=== PATIENT | male | born 1990 | race African-American/Black ===

== ENCOUNTER 2022-08-25 10:07 | Emergency (ER) | payer OTHER ==
[~2022-08-25] VITALS: Ht 177.8 cm; Wt 77.1 kg
--- NOTE | 2022-08-25 10:15 | NUR ---
N/V AT THIS TIME RECEIVED PT 31 YRS MALE CAME FROM HOME C/O EPEGASTRIC PAIN FOR 3 DAYS DINESES
[2022-08-25] MEDS ORDERED: FAMOTIDINE/PF INJ 20 MG/2 ML VIAL IV ONE ×2 (10:30→10:45)
--- NOTE | 2022-08-25 10:30 | NUR ---
SEEN by DR. PAYTON
--- NOTE | 2022-08-25 10:35 | NUR ---
PT REFUSED IV LINE TO INSETED AND BLOOD DROW BY LAB AND UA SENT TO LAB
[2022-08-25 10:41] LABS: BASOPHILS % (AUTO) 1.1 % (0.0-2.0); HEMATOCRIT 41 % (39-51); HEMOGLOBIN 13.6 g/dL (13.5-17.5); LYMPHOCYTES # (AUTO) 1.4 K/uL (0.8-4.8); LYMPHOCYTES % (AUTO) 34.9 % (20.0-44.0); MEAN CORPUSCULAR HGB CONC 34 g/dl (31.0-36.0); MEAN CORPUSCULAR VOLUME 89 fL (80-96); MONOCYTES # (AUTO) 0.3 K/uL (0.1-1.30); MONOCYTES % (AUTO) 8.6 % (2.0-12.0); NEUTROPHILS % (AUTO) 50.4 % (43.0-81.0); PLATELET COUNT (AUTO) 196 K/uL (150-450); RED BLOOD CELL COUNT(AUTO) 4.53 MIL/uL (4.5-6.0)
--- NOTE | 2022-08-25 10:45 | NUR ---
OKY TO GIVE PEPCED PO INSTED THEN IV ORDRED BY DR. PAYTON
[2022-08-25 10:46] LABS: BILIRUBIN,URINE NEGATIVE (NEGATIVE); COLOR,URINE YELLOW (YELLOW); LEUKOCYTE ESTERASE ,URINE NEGATIVE (NEGATIVE); NITRITE, URINE NEGATIVE (NEGATIVE); PROTEIN,URINE NEGATIVE (NEGATIVE); UGLUCOSE NEGATIVE (NEGATIVE); UROBILINOGEN,URINE 0.2 EU/dL (0.2)
[2022-08-25] MEDS ORDERED: FAMOTIDINE (20 MG) 20 MG TABLET ONE (10:47)
[2022-08-25 11:24] LABS: CALCIUM, SERUM 8.8 mg/dL (8.5-10.1); CREATININE 0.9 mg/dL (0.6-1.3)
[2022-08-25 11:30] LABS: ALBUMIN 3.7 g/dL (3.4-5.0); BILIRUBIN,DIRECT 0.1 mg/dL (0.0-0.2); BILIRUBIN,TOTAL 0.3 mg/dL (0.2-1.0); TOTAL PROTEIN, SERUM 7.3 g/dL (6.4-8.2)
--- NOTE | 2022-08-25 11:35 | NUR ---
ABDOMINALE US DONE AT BED SIDE
[2022-08-25 11:36] LABS: BACTERIA,URINE None seen /HPF (None Seen); RBC,URINE 0-2 /HPF (0-2); SQUAMOUS EPITHELIAL CELL,UR Rare /HPF (None Seen); WBC,URINE 0-2 /HPF (0-3)
[2022-08-25] MEDS ORDERED: MAG HYDROX/AL HYDROX/SIMETH 30 ML UDC ONE (12:24)
[2022-08-25] MEDS ORDERED: LIDOCAINE VISCOUS 2% UD 15 ML UDC ONE (12:25)
[2022-08-25] MEDS ORDERED: LIDOCAINE VISCOUS 2% UD 15 ML UDC MM ONE (12:30)
[2022-08-25] MEDS ORDERED: MAG HYDROX/AL HYDROX/SIMETH 30 ML UDC PO ONE (12:30)
--- NOTE | 2022-08-25 12:50 | NUR ---
Maalox 30ml and xylocine 15 ml po given pt tolorated no n/v AND PAIN RESOVE
[2022-08-25] MEDS ORDERED: FAMO-131 PO (12:57)
--- NOTE | 2022-08-25 13:04 | NUR ---
Patient discharged to home in stable condition. Written and verbal after care instructions given. Patient verbalizes understanding of instruction.
[2022-08-25 13:06] VITALS: BP 111/77
== END 2022-08-25 13:07 | disposition home or self-care (01) ==
LOC: ER 10:14
DX: R10.13 Epigastric pain (principal)
CPT/HCPCS: 36415; 76705-TC; 80048-TC; 80076-TC; 81001; 83690-TC; 85025-TC; J3490

== ENCOUNTER 2023-06-02 20:57 | Emergency (ER) | payer OTHER ==
[~2023-06-02] VITALS: Ht 177.8 cm; Wt 77.1 kg
[~2023-06-02 20:57] MED LIST: FAMO-131 PO
[2023-06-02] MEDS ORDERED: IV NS 0.9% 1,000 ML BAG IV ONE (23:00)
[2023-06-02] MEDS ORDERED: METOCLOPRAMIDE HCL 10 MG/2 ML VIAL IV ONE (23:00)
[2023-06-02] MEDS ORDERED: KETOROLAC TROMETHAMINE INJ 30 MG/ML VIAL IV ONE (23:00)
[2023-06-02] MEDS ORDERED: diphenhydrAMINE HCL 50 MG/ML VIAL IV ONE (23:00)
[2023-06-02] MEDS ORDERED: diphenhydrAMINE HCL 50 MG/ML VIAL ONE (23:02)
[2023-06-02] MEDS ORDERED: KETOROLAC TROMETHAMINE 15 MG/ML VIAL ONE (23:02)
[2023-06-02] MEDS ORDERED: METOCLOPRAMIDE HCL 10 MG/2 ML VIAL ONE (23:02)
[2023-06-02 23:12] LABS: BASOPHILS % (AUTO) 0.4 % (0.0-2.0); EOSINOPHILS # (AUTO) 0.2 K/uL (0.0-0.7); EOSINOPHILS % (AUTO) 3.2 % (0.0-6.0); HEMATOCRIT 44 % (39-51); HEMOGLOBIN 14.5 g/dL (13.5-17.5); LYMPHOCYTES # (AUTO) 2.2 K/uL (0.8-4.8); LYMPHOCYTES % (AUTO) 42.3 % (20.0-44.0); MEAN CORPUSCULAR HEMOGLOBIN 30 PG (26.0-33.0); MEAN CORPUSCULAR HGB CONC 33 g/dl (31.0-36.0); MEAN CORPUSCULAR VOLUME 91 fL (80-96); MONOCYTES # (AUTO) 0.5 K/uL (0.1-1.30); NEUTROPHILS # (AUTO) 2.3 K/uL (1.8-8.9); NEUTROPHILS % (AUTO) 45.1 % (43.0-81.0); PLATELET COUNT (AUTO) 194 K/uL (150-450); RED BLOOD CELL COUNT(AUTO) 4.79 MIL/uL (4.5-6.0); RED CELL DISTRIBUTION WIDTH 14.2 % (11.5-15.0); WHITE BLOOD COUNT (AUTO) 5.2 K/uL (4.3-11.0)
[2023-06-02 23:26] LABS: ALBUMIN 3.8 g/dL (3.4-5.0); BILIRUBIN,DIRECT 0.1 mg/dL (0.0-0.2); BILIRUBIN,TOTAL 0.3 mg/dL (0.2-1.0); CALCIUM, SERUM 9.3 mg/dL (8.5-10.1); CREATININE 0.8 mg/dL (0.6-1.3); TOTAL PROTEIN, SERUM 8.1 g/dL (6.4-8.2)
[2023-06-02] MEDS ORDERED: NABU-141 PO (23:56)
[2023-06-03 00:11] VITALS: BP 132/70; TEMP 98; O2SAT 98
== END 2023-06-03 00:12 | disposition home or self-care (01) ==
LOC: ER 21:04
DX: M65.4 Radial styloid tenosynovitis [de Quervain] (principal); R10.13 Epigastric pain; R51.9 Headache, unspecified; Z79.899 Other long term (current) drug therapy
CPT/HCPCS: 99284; 96374; 96375; 96361; 85025; 80048; 83690; 80076; 36415; J1200; J2765; J7030; J1885